=== PATIENT | male | born 1965 | race Caucasian/White ===

== ENCOUNTER 2018-05-15 11:05 | Inpatient (IN) | payer OTHER ==
[2018-05-15 11:12] VITALS: BMI 29.7
--- NOTE | 2018-05-15 11:26 | HP ---
CIWA Score - CIWA Score Nausea/Vomitin Muscle Tremors: 3 Anxiety: 3 Agitation: 2 Paroxysmal Sweats: 1-Minimal Palms Moist Orientation: 0-Oriented Tacttile Disturbances: 1-Very Mild Itch/Numbness Auditory Disturbances: 1-Very Mild Visual Disturbances: 0-None Headache: 2-Mild CIWA-Ar Total Score: 16 Admission ROS [facility] - HPI Chief Complaint: i need help to stop drinking alcohol Allergies/Adverse Reactions: Allergies Allergy/AdvReac Type Severity Reaction Status Date / Time No Known Allergies Allergy Verified 06/02/14 19:48 History of Present Illness: this 52 years old male with alcohol dependence,seeking detox,withdrawal symptom, last detox 04/11 unknowm facility htn,type 2 dm,non compliance anxiety,depression,insomnia no significant period of sobriety seen in olds last night Exam Limitations: No Limitations - Ebola screening Have you been sick,other than usual withdrawal symptoms: No - Review of Systems Constitutional: Loss of Appetite, Malaise, Night Sweats, Changes in sleep, Weakness EENT: reports: Tearing, Nose Congestion Cardiac: reports: No Symptoms Reported GI: reports: Diarrhea, Nausea, Vomiting, Abdominal cramping : reports: No Symptoms Reported Musculoskeletal: reports: Back Pain, Muscle Pain Integumentary: reports: Dryness Neuro: reports: Headache, Tremors Endocrine: reports: No Symptoms Reported Hematology: reports: No Symptoms Reported Psychiatric: reports: No Sypmtoms Reported, Judgement Intact, Mood/Affect Appropiate, Anxious, Depressed (insomnia) Patient History - Patient Medical History Hx Anemia: No Hx Asthma: No Hx Chronic Obstructive Pulmonary Disease (COPD): No Hx Cancer: No Hx Cardiac Disorders: No Hx Hypertension: Yes (non compliance no medcation for 2 weeks) Hx Hypercholesterolemia: No Hx Pacemaker: No HX Cerebrovascular Accident: No Hx Seizures: No Hx Diabetes: No Hx Gastrointestinal Disorders: No Hx Liver Disease: No Hx Genitourinary Disorders: Yes (SYPHILIS WITH TREATMENT ) Hx Sexually Transmitted Disorders: Yes Hx Renal Disease (ESRD): No Hx Thyroid Disease: No Hx Human Immunodeficiency Virus (HIV): No ( last 05/11 negative) Hx Hepatitis C: No Hx Depression: Yes (WANTS PSYCH EVAL) Hx Suicide Attempt: No (DENIES) Hx Bipolar Disorder: No Hx Schizophrenia: No Other Medical History: no suicidal,no homicidal - Patient Surgical History Past Surgical History: No Hx Neurologic Surgery: No Hx Cataract Extraction: No Hx Cardiac Surgery: No Hx Lung Surgery: No Hx Breast Surgery: No Hx Breast Biopsy: No Hx Abdominal Surgery: No Hx Appendectomy: No Hx Cholecystectomy: No Hx Genitourinary Surgery: No Hx Section: No Hx Orthopedic Surgery: No Anesthesia Reaction: No - PPD History Previous Implant?: Yes Documented Results: Positive w/o proof PPD to be Administered?: No - Smoking Cessation Smoking history: Never smoked Have you smoked in the past 12 months: No Hx Chewing Tobacco Use: No - Substance & Tx. History Hx Alcohol Use: Yes Hx Substance Use: No Substance Use Type: Alcohol Hx Substance Use Treatment: Yes (04/11 unknown facility) - Substances Abused Alcohol Route: Oral Frequency: Daily Amount used: 2 pints of vodka Age of first use: 15 Date of Last Use: 05/14/18 Family Disease History - Family Disease History Family Disease History: Other: Father (HTN,) Admission Physical Exam [facility] - Vital Signs Vital Signs: Vital Signs - 24 hr 05/15/18 11:10 Temperature 97.5 F L Pulse Rate 105 H Respiratory 20 Rate Blood Pressure 128/92 - Physical General Appearance: Yes: Moderate Distress, Tremorous, Irritable, Sweating, Anxious HEENTM: Yes: Normal ENT Inspection, PRECIOUS, Pharynx Normal Respiratory: Yes: Lungs Clear, Normal Breath Sounds, No Respiratory Distress Neck: Yes: Within Normal Limits, Supple, Trachea in good position Breast: Yes: Within Normal Limits Cardiology: Yes: Within Normal Limits, Regular Rhythm, Regular Rate, S1, S2 Abdominal: Yes: Within Normal Limits, Normal Bowel Sounds, Non Tender, Flat, Soft Genitourinary: Yes: Within Normal Limits Back: Yes: Muscle Spasm Musculoskeletal: Yes: Back pain, Muscle Pain Extremities: Yes: Tremors Neurological: Yes: pizza cook II-XII NML intact, Alert, Motor Strength 5/5, Normal Mood /Affect Integumentary: Yes: Dry Lymphatic: Yes: Within Normal Limits - Diagnostic (1) Alcohol dependence, uncomplicated Current Visit: Yes Status: Acute (2) Essential hypertension Current Visit: No Status: Acute (3) Syncope Current Visit: No Status: Acute (4) DM2 (diabetes mellitus, type 2) Current Visit: Yes Status: Acute Cleared for Admission [facility] - Detox or Rehab [facility] Level of Care: Medically Managed Detox Regimen/Protocol: [facility] Breath Alcohol Content Breath Alcohol Content: 0.129 Urine Drug Screen - Results Drug Screen Negative: No Urine Drug Screen Results: BZO-Benzodiazepines
[2018-05-15] MEDS ORDERED: MAGNESIUM HYDROX 2400MG/30ML ORAL SUSPENSION 30 ML CUP PO PRN (11:35)
[2018-05-15] MEDS ORDERED: MAGNESIUM CITRATE 300 ML BOTTLE PO PRN (11:35)
[2018-05-15] MEDS ORDERED: MENTHOL/PHENOL 1 EACH UD MM PRN (11:35)
[2018-05-15] MEDS ORDERED: IBUPROFEN 400 MG TABLET (FP) PO PRN (11:35)
[2018-05-15] MEDS ORDERED: MAG HYDROX/AL HYDROX/SIMETH 30 ML UNIT-DOSE CUP PO PRN (11:35)
[2018-05-15] MEDS ORDERED: guaiFENesin/D-METHORPHAN HB 10 ML UNIT-DOSE CUPS PO PRN (11:35)
[2018-05-15] MEDS ORDERED: P-EPHED 60MG/TRIPROLIDI 2.5MG TABLET PO PRN (11:35)
[2018-05-15] MEDS ORDERED: LOPERAMIDE HCL 2 MG CAPSULE PO PRN (11:35)
[2018-05-15] MEDS ORDERED: ACETAMINOPHEN 325 MG TABLET (FP) PO PRN (11:35)
[2018-05-15] MEDS: chlordiazePOXIDE HCL 25 MG CAPSULE PO PRN (13:23)
[2018-05-15] MEDS: chlordiazePOXIDE HCL 25 MG CAPSULE PO SCH ×2 (17:50→22:49)
[2018-05-15 20:23] LABS: URINE APPEARANCE CLOUDY; URINE BILIRUBIN NEGATIVE (<2.0 mg/dL); URINE COLOR LTYELLOW; URINE GLUCOSE (UA) 3+ (NEGATIVE); URINE KETONE NEGATIVE (NEGATIVE); URINE LEUK ESTERASE NEGATIVE (NEGATIVE); URINE NITRITE NEGATIVE (NEGATIVE); URINE UROBILINOGEN NEGATIVE mg/dL (0.2-1.0)
[2018-05-15 20:29] LABS: URINE PROTEIN 1+ (NEGATIVE)
[2018-05-15 20:31] LABS: URINE MUCUS RARE
--- NOTE | 2018-05-15 21:26 | EKG ---
Test Reason : Blood Pressure : / mmHG Vent. Rate : 105 BPM Atrial Rate : 105 BPM P-R Int : 160 ms QRS Dur : 078 ms QT Int : 374 ms P-R-T Axes : 061 -48 044 degrees QTc Int : 494 ms SINUS TACHYCARDIA WITH OCCASIONAL PREMATURE VENTRICULAR COMPLEXES POSSIBLE LEFT ATRIAL ENLARGEMENT LEFT AXIS DEVIATION ABNORMAL ECG NO PREVIOUS ECGS AVAILABLE Confirmed by YVETTE GAYTAN MD ([id number]) on 05/15/2018 9:26:25 PM Referred By: Confirmed By:YVETTE GAYTAN MD
[2018-05-15] MEDS: THIAMINE HCL 100 MG TABLET (FP) PO SCH (22:49)
[2018-05-15] MEDS: MELATONIN 5 MG TABLETS PO PRN (22:50)
[2018-05-16] MEDS: chlordiazePOXIDE HCL 25 MG CAPSULE PO SCH ×4 (06:00→22:07)
[2018-05-16 09:43] LABS: HEMATOCRIT 40.2 % (35.4-49); HEMOGLOBIN 13.7 GM/dL (11.7-16.9); MCHC 33.9 g/dl (32.0-35.9); MEAN CELL VOLUME 94.4 fl (80-96); MEAN PLT VOLUME 11.1 fl (7.5-11.1); PLATELET COUNT 177 K/MM3 (134-434); RBC 4.26 M/mm3 (4.00-5.60); RDW 13.9 % (11.9-15.9); WHITE BLOOD COUNT 4.8 K/mm3 (4.0-10.0)
[2018-05-16 09:58] LABS: ALBUMIN 3.3 g/dl (3.4-5.0); ANION GAP 10 (8-16); BLOOD UREA NITROGEN 9 mg/dL (7-18); CALCIUM 8.7 mg/dL (8.5-10.1); CHLORIDE 101 mmol/L (98-107); CO2 28 mmol/L (21-32); GLUCOSE,RANDOM 274 mg/dL (74-106); POTASSIUM 3.8 mmol/L (3.5-5.1); SGPT/ALT 40 U/L (12-78); SODIUM 139 mmol/L (136-145)
[2018-05-16 10:01] LABS: ALK PHOS 73 U/L (45-117); BILIRUBIN,TOTAL 0.3 mg/dL (0.2-1.0); CREATININE 0.9 mg/dL (0.7-1.3); SGOT/AST 23 U/L (15-37); TOT PROT 6.3 g/dl (6.4-8.2)
[2018-05-16] MEDS: HYDROCHLOROTHIAZIDE 25 MG TABLET (FP) PO SCH (10:25)
[2018-05-16] MEDS: PRENATAL VITAMINS W/ FOLIC ACID TABLET (FP) PO SCH (10:25)
--- NOTE | 2018-05-16 13:13 | CONSULT ---
[facility] Psychiatric Consult - Data Date of interview: 05/16/18 Admission source: [facility] Identifying data: Readmission to [facility] for this 52 y/o male seeking detox treatment on for alcohol dependence.Patient is ,a father of four,homeless,unemployed and supported on unemployment benefits. Substance Abuse History: Confirmed by the patient in this interview.Smoking history: Never smoked. Have you smoked in the past 12 months: No. Hx Chewing Tobacco Use: No. - Substance & Tx. History. Hx Alcohol Use: Yes. Hx Substance Use: No. Substance Use Type: Alcohol. Hx Substance Use Treatment: Yes (04/11 unknown facility). - Substances Abused. Alcohol. Route: Oral. Frequency: Daily. Amount used: 2 pints of vodka. Age of first use: 15. Date of Last Use: 05/14/18 Medical History: Diabetes mellitus,hypertension,GERD and a history of treatment for syphilis. Psychiatric History: Patient denies. Physical/Sexual Abuse/Trauma History: No history. Additional Comment: Urine Drug Screen Results: BZO-Benzodiazepines.Noted. Mental Status Exam - Mental Status Exam Alert and Oriented to: Time, Place, Person Cognitive Function: Good Patient Appearance: Disheveled Mood: Withdrawn, Irritable Affect: Mood Congruent Patient Behavior: Fatigued, Cooperative Speech Pattern: Clear, Appropriate Voice Loudness: Normal Thought Process: Intact, Goal Oriented Thought Disorder: Not Present Hallucinations: Denies Suicidal Ideation: Denies Homicidal Ideation: Denies Insight/Judgement: Poor Sleep: Well Appetite: Good Muscle strength/Tone: Normal Gait/Station: Normal Psychiatric Findings - Problem List ([place] 1, 2,3) (1) Alcohol dependence, uncomplicated Current Visit: Yes Status: Acute (2) Substance induced mood disorder Current Visit: Yes Status: Suspected - Initial Treatment Plan Initial Treatment Plan: Psychoeducation.Sleep hygiene.Detoxification.Observation.
--- NOTE | 2018-05-16 15:55 | PN ---
[facility] CIWA - CIWA Score Nausea/Vomitin Muscle Tremors: 3 Anxiety: 3 Agitation: 3 Paroxysmal Sweats: 3 Orientation: 0-Oriented Tacttile Disturbances: 0-None Auditory Disturbances: 0-None Visual Disturbances: 0-None Headache: 0-None Present CIWA-Ar Total Score: 14 S Progress Note (SOAP) Subjective: shakes sweats sleep disturbance Objective: 05/16/18 15:51 A & O x 3 Gait steady No acute distress Vital Signs Temperature 97.4 F L 05/16/18 14:03 Pulse Rate 104 H 05/16/18 15:00 Respiratory Rate 20 05/16/18 15:00 Blood Pressure 148/86 05/16/18 14:03 O2 Sat by Pulse Oximetry (%) Laboratory Last Values WBC 4.8 K/mm3 (4.0-10.0) 05/16/18 07:00 RBC 4.26 M/mm3 (4.00-5.60) 05/16/18 07:00 Hgb 13.7 GM/dL (11.7-16.9) 05/16/18 07:00 Hct 40.2 % (35.4-49) 05/16/18 07:00 MCV 94.4 fl (80-96) 05/16/18 07:00 MCH 32.0 pg (25.7-33.7) 05/16/18 07:00 MCHC 33.9 g/dl (32.0-35.9) 05/16/18 07:00 RDW 13.9 % (11.9-15.9) 05/16/18 07:00 Plt Count 177 K/MM3 (134-434) 05/16/18 07:00 MPV 11.1 fl (7.5-11.1) 05/16/18 07:00 Sodium 139 mmol/L (136-145) 05/16/18 07:00 Potassium 3.8 mmol/L (3.5-5.1) 05/16/18 07:00 Chloride 101 mmol/L (98-107) 05/16/18 07:00 Carbon Dioxide 28 mmol/L (21-32) 05/16/18 07:00 Anion Gap 10 (8-16) 05/16/18 07:00 BUN 9 mg/dL (7-18) 05/16/18 07:00 Creatinine 0.9 mg/dL (0.7-1.3) 05/16/18 07:00 Creat Clearance w eGFR > 60 (>60) 05/16/18 07:00 POC Glucometer 210 UNITS (80-120) 05/16/18 06:00 Random Glucose 274 mg/dL (74-106) H D 05/16/18 07:00 Calcium 8.7 mg/dL (8.5-10.1) 05/16/18 07:00 Total Bilirubin 0.3 mg/dL (0.2-1.0) 05/16/18 07:00 AST 23 U/L (15-37) 05/16/18 07:00 ALT 40 U/L (12-78) D 05/16/18 07:00 Alkaline Phosphatase 73 U/L (45-117) 05/16/18 07:00 Total Protein 6.3 g/dl (6.4-8.2) L 05/16/18 07:00 Albumin 3.3 g/dl (3.4-5.0) L 05/16/18 07:00 Urine Color Ltyellow 05/15/18 16:30 Urine Appearance Cloudy 05/15/18 16:30 Urine pH 5.0 (5.0-8.0) 05/15/18 16:30 Ur Specific [place] 1.020 (1.001-1.035) 05/15/18 16:30 Urine Protein 1+ (NEGATIVE) H 05/15/18 16:30 Urine Glucose (UA) 3+ (NEGATIVE) H 05/15/18 16:30 Urine Ketones Negative (NEGATIVE) 05/15/18 16:30 Urine Blood Negative (NEGATIVE) 05/15/18 16:30 Urine Nitrite Negative (NEGATIVE) 05/15/18 16:30 Urine Bilirubin Negative (<2.0 mg/dL) 05/15/18 16:30 Urine Urobilinogen Negative mg/dL (0.2-1.0) 05/15/18 16:30 Ur Leukocyte Esterase Negative (NEGATIVE) 05/15/18 16:30 Urine WBC (Auto) 2 /hpf (3-5) 05/15/18 16:30 Urine RBC (Auto) <1 /hpf (0-3) 05/15/18 16:30 Urine Mucus Rare 05/15/18 16:30 RPR Titer Nonreactive (NONREACTIVE) 05/16/18 07:00 labs noted elevated blood glucose abnormal urianalysis Assessment: 05/16/18 15:53 withdrawal sx hyperglycemia Plan: continue detox take anti diabetics increase hydration
[2018-05-16] MEDS: metFORMIN HCL 500 MG TABLET (FP) PO SCH (17:06)
[2018-05-16] MEDS: chlordiazePOXIDE HCL 25 MG CAPSULE PO PRN (20:50)
[2018-05-16] MEDS: THIAMINE HCL 100 MG TABLET (FP) PO SCH (22:07)
[2018-05-16] MEDS: MELATONIN 5 MG TABLETS PO PRN (22:08)
[2018-05-17] MEDS: chlordiazePOXIDE HCL 25 MG CAPSULE PO SCH ×2 (05:43→10:27)
[2018-05-17] MEDS: metFORMIN HCL 500 MG TABLET (FP) PO SCH ×2 (07:38→17:19)
[2018-05-17] MEDS: PRENATAL VITAMINS W/ FOLIC ACID TABLET (FP) PO SCH (10:27)
[2018-05-17] MEDS: HYDROCHLOROTHIAZIDE 25 MG TABLET (FP) PO SCH (10:28)
--- NOTE | 2018-05-17 14:38 | PN ---
S CIWA - CIWA Score Nausea/Vomitin-No Nausea/No Vomiting Muscle Tremors: None Anxiety: 4-Mod. Anxious/Guarded Agitation: 3 Paroxysmal Sweats: 3 Orientation: 0-Oriented Tacttile Disturbances: 2-Mild Itch/Numbness/Burn Auditory Disturbances: 0-None Visual Disturbances: 0-None Headache: 2-Mild CIWA-Ar Total Score: 14 S Progress Note (SOAP) Subjective: Sweating, H/A, Anxious. Objective: PATIENT A & O X 3, OBSERVED AMBULATING ON UNIT. NO ACUTE DISTRESS. PATIENT DENIES CHEST PAIN. 05/17/18 14:35 Vital Signs Temperature 96.7 F L 05/17/18 13:10 Pulse Rate 120 H 05/17/18 13:10 Respiratory Rate 18 05/17/18 13:10 Blood Pressure 128/90 05/17/18 13:10 O2 Sat by Pulse Oximetry (%) Laboratory Tests 05/15/18 05/15/18 05/15/18 12:24 16:21 16:30 WBC RBC Hgb Hct MCV MCH MCHC RDW Plt Count MPV Sodium Potassium Chloride Carbon Dioxide Anion Gap BUN Creatinine Creat Clearance w eGFR POC Glucometer 293 262 Random Glucose Calcium Total Bilirubin AST ALT Alkaline Phosphatase Total Protein Albumin Urine Color Ltyellow Urine Appearance Cloudy Urine pH 5.0 Ur Specific [place] 1.020 Urine Protein 1+ H Urine Glucose (UA) 3+ H Urine Ketones Negative Urine Blood Negative Urine Nitrite Negative Urine Bilirubin Negative Urine Urobilinogen Negative Ur Leukocyte Esterase Negative Urine WBC (Auto) 2 Urine RBC (Auto) <1 Urine Mucus Rare RPR Titer 05/16/18 05/16/18 05/16/18 06:00 07:00 07:00 WBC 4.8 RBC 4.26 Hgb 13.7 Hct 40.2 MCV 94.4 MCH 32.0 MCHC 33.9 RDW 13.9 Plt Count 177 MPV 11.1 Sodium 139 Potassium 3.8 Chloride 101 Carbon Dioxide 28 Anion Gap 10 BUN 9 Creatinine 0.9 Creat Clearance w eGFR > 60 POC Glucometer 210 Random Glucose 274 H D Calcium 8.7 Total Bilirubin 0.3 AST 23 ALT 40 D Alkaline Phosphatase 73 Total Protein 6.3 L Albumin 3.3 L Urine Color Urine Appearance Urine pH Ur Specific [place] Urine Protein Urine Glucose (UA) Urine Ketones Urine Blood Urine Nitrite Urine Bilirubin Urine Urobilinogen Ur Leukocyte Esterase Urine WBC (Auto) Urine RBC (Auto) Urine Mucus RPR Titer 05/16/18 05/16/18 05/17/18 07:00 16:15 05:42 WBC RBC Hgb Hct MCV MCH MCHC RDW Plt Count MPV Sodium Potassium Chloride Carbon Dioxide Anion Gap BUN Creatinine Creat Clearance w eGFR POC Glucometer 317 223 Random Glucose Calcium Total Bilirubin AST ALT Alkaline Phosphatase Total Protein Albumin Urine Color Urine Appearance Urine pH Ur Specific [place] Urine Protein Urine Glucose (UA) Urine Ketones Urine Blood Urine Nitrite Urine Bilirubin Urine Urobilinogen Ur Leukocyte Esterase Urine WBC (Auto) Urine RBC (Auto) Urine Mucus RPR Titer Nonreactive LABS NOTED. 05/17/18 14:37 Assessment: 05/17/18 14:36 WITHDRAWAL SYMPTOMS. HYPERTENSION. 05/17/18 14:37 Plan: CONTINUE DETOX. INCREASE DAILY PO FLUID INTAKE.
[2018-05-17] MEDS: chlordiazePOXIDE 5 MG CAPSULE PO SCH ×2 (17:19→22:04)
[2018-05-17] MEDS: THIAMINE HCL 100 MG TABLET (FP) PO SCH (22:04)
[2018-05-17] MEDS: MELATONIN 5 MG TABLETS PO PRN (22:04)
[2018-05-18] MEDS: chlordiazePOXIDE 5 MG CAPSULE PO SCH ×2 (05:37→10:20)
[2018-05-18] MEDS: metFORMIN HCL 500 MG TABLET (FP) PO SCH ×2 (06:51→16:19)
[2018-05-18] MEDS: PRENATAL VITAMINS W/ FOLIC ACID TABLET (FP) PO SCH (10:20)
[2018-05-18] MEDS: HYDROCHLOROTHIAZIDE 25 MG TABLET (FP) PO SCH (10:20)
--- NOTE | 2018-05-18 12:43 | PN ---
[facility] Progress Note (SOAP) Subjective: Diarrhea, Anxious. Objective: PATIENT A & O X 3. NO ACUTE DISTRESS. 05/18/18 12:42 Vital Signs Temperature 96.9 F L 05/18/18 09:06 Pulse Rate 87 05/18/18 09:06 Respiratory Rate 18 05/18/18 09:06 Blood Pressure 137/99 05/18/18 09:06 O2 Sat by Pulse Oximetry (%) Laboratory Tests 05/15/18 05/15/18 05/15/18 12:24 16:21 16:30 WBC RBC Hgb Hct MCV MCH MCHC RDW Plt Count MPV Sodium Potassium Chloride Carbon Dioxide Anion Gap BUN Creatinine Creat Clearance w eGFR POC Glucometer 293 262 Random Glucose Calcium Total Bilirubin AST ALT Alkaline Phosphatase Total Protein Albumin Urine Color Ltyellow Urine Appearance Cloudy Urine pH 5.0 Ur Specific [place] 1.020 Urine Protein 1+ H Urine Glucose (UA) 3+ H Urine Ketones Negative Urine Blood Negative Urine Nitrite Negative Urine Bilirubin Negative Urine Urobilinogen Negative Ur Leukocyte Esterase Negative Urine WBC (Auto) 2 Urine RBC (Auto) <1 Urine Mucus Rare RPR Titer 05/16/18 05/16/18 05/16/18 06:00 07:00 07:00 WBC 4.8 RBC 4.26 Hgb 13.7 Hct 40.2 MCV 94.4 MCH 32.0 MCHC 33.9 RDW 13.9 Plt Count 177 MPV 11.1 Sodium 139 Potassium 3.8 Chloride 101 Carbon Dioxide 28 Anion Gap 10 BUN 9 Creatinine 0.9 Creat Clearance w eGFR > 60 POC Glucometer 210 Random Glucose 274 H D Calcium 8.7 Total Bilirubin 0.3 AST 23 ALT 40 D Alkaline Phosphatase 73 Total Protein 6.3 L Albumin 3.3 L Urine Color Urine Appearance Urine pH Ur Specific [place] Urine Protein Urine Glucose (UA) Urine Ketones Urine Blood Urine Nitrite Urine Bilirubin Urine Urobilinogen Ur Leukocyte Esterase Urine WBC (Auto) Urine RBC (Auto) Urine Mucus RPR Titer 05/16/18 05/16/18 05/17/18 07:00 16:15 05:42 WBC RBC Hgb Hct MCV MCH MCHC RDW Plt Count MPV Sodium Potassium Chloride Carbon Dioxide Anion Gap BUN Creatinine Creat Clearance w eGFR POC Glucometer 317 223 Random Glucose Calcium Total Bilirubin AST ALT Alkaline Phosphatase Total Protein Albumin Urine Color Urine Appearance Urine pH Ur Specific [place] Urine Protein Urine Glucose (UA) Urine Ketones Urine Blood Urine Nitrite Urine Bilirubin Urine Urobilinogen Ur Leukocyte Esterase Urine WBC (Auto) Urine RBC (Auto) Urine Mucus RPR Titer Nonreactive 05/17/18 05/18/18 16:21 05:37 WBC RBC Hgb Hct MCV MCH MCHC RDW Plt Count MPV Sodium Potassium Chloride Carbon Dioxide Anion Gap BUN Creatinine Creat Clearance w eGFR POC Glucometer 347 243 Random Glucose Calcium Total Bilirubin AST ALT Alkaline Phosphatase Total Protein Albumin Urine Color Urine Appearance Urine pH Ur Specific [place] Urine Protein Urine Glucose (UA) Urine Ketones Urine Blood Urine Nitrite Urine Bilirubin Urine Urobilinogen Ur Leukocyte Esterase Urine WBC (Auto) Urine RBC (Auto) Urine Mucus RPR Titer LABS NOTED. Assessment: 05/18/18 12:42 WITHDRAWAL SYMPTOMS. Plan: CONTINUE DETOX. INCREASE DAILY PO FLUID INTAKE. PRN IMMODIUM FOR DIARRHEA. PATIENT SCHEDULED FOR D/C TOMORROW.
[2018-05-18] MEDS: chlordiazePOXIDE HCL 10 MG CAPSULE PO SCH ×2 (17:37→22:50)
[2018-05-18] MEDS: THIAMINE HCL 100 MG TABLET (FP) PO SCH (22:50)
[2018-05-19] MEDS: chlordiazePOXIDE HCL 10 MG CAPSULE PO SCH (05:34)
[2018-05-19 05:58] VITALS: BP 121/73; PULSE 93; TEMP 97.2
[2018-05-19] MEDS: metFORMIN HCL 500 MG TABLET (FP) PO SCH (07:45)
--- NOTE | 2018-05-19 20:23 | PN ---
[facility] Progress Note (SOAP) Subjective: Patient left Detox unit prior to time in which BILLING CLERK was available to conduct Discharge Assessment. Objective: 05/19/18 20:21 Vital Signs Temperature 97.2 F L 05/19/18 05:58 Pulse Rate 93 H 05/19/18 05:58 Respiratory Rate 18 05/19/18 06:30 Blood Pressure 121/73 05/19/18 05:58 O2 Sat by Pulse Oximetry (%) Laboratory Tests 05/15/18 05/15/18 05/15/18 12:24 16:21 16:30 WBC RBC Hgb Hct MCV MCH MCHC RDW Plt Count MPV Sodium Potassium Chloride Carbon Dioxide Anion Gap BUN Creatinine Creat Clearance w eGFR POC Glucometer 293 262 Random Glucose Calcium Total Bilirubin AST ALT Alkaline Phosphatase Total Protein Albumin Urine Color Ltyellow Urine Appearance Cloudy Urine pH 5.0 Ur Specific [place] 1.020 Urine Protein 1+ H Urine Glucose (UA) 3+ H Urine Ketones Negative Urine Blood Negative Urine Nitrite Negative Urine Bilirubin Negative Urine Urobilinogen Negative Ur Leukocyte Esterase Negative Urine WBC (Auto) 2 Urine RBC (Auto) <1 Urine Mucus Rare RPR Titer 05/16/18 05/16/18 05/16/18 06:00 07:00 07:00 WBC 4.8 RBC 4.26 Hgb 13.7 Hct 40.2 MCV 94.4 MCH 32.0 MCHC 33.9 RDW 13.9 Plt Count 177 MPV 11.1 Sodium 139 Potassium 3.8 Chloride 101 Carbon Dioxide 28 Anion Gap 10 BUN 9 Creatinine 0.9 Creat Clearance w eGFR > 60 POC Glucometer 210 Random Glucose 274 H D Calcium 8.7 Total Bilirubin 0.3 AST 23 ALT 40 D Alkaline Phosphatase 73 Total Protein 6.3 L Albumin 3.3 L Urine Color Urine Appearance Urine pH Ur Specific [place] Urine Protein Urine Glucose (UA) Urine Ketones Urine Blood Urine Nitrite Urine Bilirubin Urine Urobilinogen Ur Leukocyte Esterase Urine WBC (Auto) Urine RBC (Auto) Urine Mucus RPR Titer 05/16/18 05/16/18 05/17/18 07:00 16:15 05:42 WBC RBC Hgb Hct MCV MCH MCHC RDW Plt Count MPV Sodium Potassium Chloride Carbon Dioxide Anion Gap BUN Creatinine Creat Clearance w eGFR POC Glucometer 317 223 Random Glucose Calcium Total Bilirubin AST ALT Alkaline Phosphatase Total Protein Albumin Urine Color Urine Appearance Urine pH Ur Specific [place] Urine Protein Urine Glucose (UA) Urine Ketones Urine Blood Urine Nitrite Urine Bilirubin Urine Urobilinogen Ur Leukocyte Esterase Urine WBC (Auto) Urine RBC (Auto) Urine Mucus RPR Titer Nonreactive 05/17/18 05/18/18 05/18/18 16:21 05:37 16:17 WBC RBC Hgb Hct MCV MCH MCHC RDW Plt Count MPV Sodium Potassium Chloride Carbon Dioxide Anion Gap BUN Creatinine Creat Clearance w eGFR POC Glucometer 347 243 281 Random Glucose Calcium Total Bilirubin AST ALT Alkaline Phosphatase Total Protein Albumin Urine Color Urine Appearance Urine pH Ur Specific [place] Urine Protein Urine Glucose (UA) Urine Ketones Urine Blood Urine Nitrite Urine Bilirubin Urine Urobilinogen Ur Leukocyte Esterase Urine WBC (Auto) Urine RBC (Auto) Urine Mucus RPR Titer 05/19/18 05:33 WBC RBC Hgb Hct MCV MCH MCHC RDW Plt Count MPV Sodium Potassium Chloride Carbon Dioxide Anion Gap BUN Creatinine Creat Clearance w eGFR POC Glucometer 289 Random Glucose Calcium Total Bilirubin AST ALT Alkaline Phosphatase Total Protein Albumin Urine Color Urine Appearance Urine pH Ur Specific [place] Urine Protein Urine Glucose (UA) Urine Ketones Urine Blood Urine Nitrite Urine Bilirubin Urine Urobilinogen Ur Leukocyte Esterase Urine WBC (Auto) Urine RBC (Auto) Urine Mucus RPR Titer LABS NOTED. Assessment: 05/19/18 20:22 COMPLETION OF DETOX REGIMEN. Plan: PATIENT SCHEDULED FOR DISCHARGE FROM DETOX UNIT TODAY.
--- NOTE | 2018-05-19 20:29 | DS ---
[facility] Detox Discharge Summary Admission Date: 05/15/18 Discharge Date: 05/19/18 - History Present History: Alcohol Dependence Additional Comments: PATIENT LEFT DETOX UNIT BEFORE POWER GENERATION TECHNICIAN WAS AVAILABLE TO SPEAK WITH HIM TO CONDUCT DISCHARGE ASSESSMENT. PATIENT PREVIOUSLY ADVISED TO CONSIDER LOCAL 12-STEP / AA OUTPATIENT SUPPORT GROUP FOR AFTERCARE. Pertinent Past History: HTN, Type II DM, Depression, History of Syphilis (Treated), Insomnia, Anxiety. - Physical Exam Results Vital Signs: Vital Signs Temperature 97.2 F L 05/19/18 05:58 Pulse Rate 93 H 05/19/18 05:58 Respiratory Rate 18 05/19/18 06:30 Blood Pressure 121/73 05/19/18 05:58 O2 Sat by Pulse Oximetry (%) Pertinent Admission Physical Exam Findings: WITHDRAWAL SYMPTOMS. Laboratory Tests 05/15/18 05/15/18 05/15/18 12:24 16:21 16:30 WBC RBC Hgb Hct MCV MCH MCHC RDW Plt Count MPV Sodium Potassium Chloride Carbon Dioxide Anion Gap BUN Creatinine Creat Clearance w eGFR POC Glucometer 293 262 Random Glucose Calcium Total Bilirubin AST ALT Alkaline Phosphatase Total Protein Albumin Urine Color Ltyellow Urine Appearance Cloudy Urine pH 5.0 Ur Specific [place] 1.020 Urine Protein 1+ H Urine Glucose (UA) 3+ H Urine Ketones Negative Urine Blood Negative Urine Nitrite Negative Urine Bilirubin Negative Urine Urobilinogen Negative Ur Leukocyte Esterase Negative Urine WBC (Auto) 2 Urine RBC (Auto) <1 Urine Mucus Rare RPR Titer 05/16/18 05/16/18 05/16/18 06:00 07:00 07:00 WBC 4.8 RBC 4.26 Hgb 13.7 Hct 40.2 MCV 94.4 MCH 32.0 MCHC 33.9 RDW 13.9 Plt Count 177 MPV 11.1 Sodium 139 Potassium 3.8 Chloride 101 Carbon Dioxide 28 Anion Gap 10 BUN 9 Creatinine 0.9 Creat Clearance w eGFR > 60 POC Glucometer 210 Random Glucose 274 H D Calcium 8.7 Total Bilirubin 0.3 AST 23 ALT 40 D Alkaline Phosphatase 73 Total Protein 6.3 L Albumin 3.3 L Urine Color Urine Appearance Urine pH Ur Specific [place] Urine Protein Urine Glucose (UA) Urine Ketones Urine Blood Urine Nitrite Urine Bilirubin Urine Urobilinogen Ur Leukocyte Esterase Urine WBC (Auto) Urine RBC (Auto) Urine Mucus RPR Titer 05/16/18 05/16/18 05/17/18 07:00 16:15 05:42 WBC RBC Hgb Hct MCV MCH MCHC RDW Plt Count MPV Sodium Potassium Chloride Carbon Dioxide Anion Gap BUN Creatinine Creat Clearance w eGFR POC Glucometer 317 223 Random Glucose Calcium Total Bilirubin AST ALT Alkaline Phosphatase Total Protein Albumin Urine Color Urine Appearance Urine pH Ur Specific [place] Urine Protein Urine Glucose (UA) Urine Ketones Urine Blood Urine Nitrite Urine Bilirubin Urine Urobilinogen Ur Leukocyte Esterase Urine WBC (Auto) Urine RBC (Auto) Urine Mucus RPR Titer Nonreactive 05/17/18 05/18/18 05/18/18 16:21 05:37 16:17 WBC RBC Hgb Hct MCV MCH MCHC RDW Plt Count MPV Sodium Potassium Chloride Carbon Dioxide Anion Gap BUN Creatinine Creat Clearance w eGFR POC Glucometer 347 243 281 Random Glucose Calcium Total Bilirubin AST ALT Alkaline Phosphatase Total Protein Albumin Urine Color Urine Appearance Urine pH Ur Specific [place] Urine Protein Urine Glucose (UA) Urine Ketones Urine Blood Urine Nitrite Urine Bilirubin Urine Urobilinogen Ur Leukocyte Esterase Urine WBC (Auto) Urine RBC (Auto) Urine Mucus RPR Titer 05/19/18 05:33 WBC RBC Hgb Hct MCV MCH MCHC RDW Plt Count MPV Sodium Potassium Chloride Carbon Dioxide Anion Gap BUN Creatinine Creat Clearance w eGFR POC Glucometer 289 Random Glucose Calcium Total Bilirubin AST ALT Alkaline Phosphatase Total Protein Albumin Urine Color Urine Appearance Urine pH Ur Specific [place] Urine Protein Urine Glucose (UA) Urine Ketones Urine Blood Urine Nitrite Urine Bilirubin Urine Urobilinogen Ur Leukocyte Esterase Urine WBC (Auto) Urine RBC (Auto) Urine Mucus RPR Titer LABS NOTED. - Treatment Hospital Course: Detox Protocol Followed, Detoxed Safely, Responded well, Discharged Condition Good Patient has Accepted a Rehab Referral to: PATIENT ADVISED TO CONSIDER LOCAL 12- STEP/AA OUTPATIENT SUPPORT GROUPS. - Medication Discharge Medications: Ambulatory Orders NK [No Known Home Medication] 05/15/18 - Diagnosis (1) Alcohol dependence, uncomplicated Status: Acute (2) DM2 (diabetes mellitus, type 2) Status: Chronic Qualifiers: Diabetes mellitus watermelon inspector insulin use: without skilled nursing use Diabetes mellitus complication status: with unspecified complications Qualified Code(s) : E11.8 - Type 2 diabetes mellitus with unspecified complications (3) Essential hypertension Status: Chronic (4) Insomnia secondary to depression with anxiety Status: Acute (5) Syncope Status: Acute Qualifiers: Syncope type: unspecified Qualified Code(s): R55 - Syncope and collapse (6) Substance induced mood disorder Status: Suspected - AMA Did Patient Leave Against Medical Advice: No
== END 2018-05-19 09:00 | disposition home or self-care (01) | DRG 775 ==
LOC: YASAS 11:05 → Y3N 12:41
PROVIDERS: ADMIT Surgery; ATTEND Surgery
PROC: HZ2ZZZZ Detoxification Services for Substance Abuse Treatment (ICD-10-PCS; principal; 2018-05-15)
DX: F10.20 Alcohol dependence, uncomplicated (principal); F51.05 Insomnia due to other mental disorder; F19.24 Other psychoactive substance dependence with psychoactive substance-induced mood disorder; I10 Essential (primary) hypertension; E11.9 Type 2 diabetes mellitus without complications; Z79.84 Long term (current) use of oral hypoglycemic drugs; R55 Syncope and collapse; Z86.19 Personal history of other infectious and parasitic diseases
CPT/HCPCS: 36415; 71046-TC-FY; 80053; 81003; 81015; 82962; 85027; 86593; 93005; 93010

== ENCOUNTER 2019-10-29 20:53 | Inpatient (IN) | payer OTHER ==
[2019-10-29 21:05] VITALS: BMI 28.9
--- NOTE | 2019-10-29 23:16 | HP ---
CIWA Score Nausea/Vomitin (vomiting x 3) Muscle Tremors: 4-Moderate,w/Arms Extend Anxiety: 3 Agitation: 3 Paroxysmal Sweats: 1-Minimal Palms Moist Orientation: 1-Uncertain about Date Tacttile Disturbances: 0-None Auditory Disturbances: 0-None Visual Disturbances: 0-None Headache: 2-Mild CIWA-Ar Total Score: 17 - Admission Criteria OASAS Guidelines: Admission for Medically Managed Detox: Requires at least one of the followin. CIWA greater than 12 2. Seizures within the past 24 hours 3. Delirium tremens within the past 24 hours 4. Hallucinations within the past 24 hours 5. Acute intervention needed for co occurring medical disorder 6. Acute intervention needed for co occurring psychiatric disorder 7. Severe withdrawal that cannot be handled at a lower level of care (continued vomiting, continued diarrhea, abnormal vital signs) requiring intravenous medication and/or fluids 8. Admitting History and Physical - Smoking History Smoking history: Never smoked Have you smoked in the past 12 months: No - Alcohol/Substance Use Hx Alcohol Use: Yes Admission ROS [facility] Chief Complaint: Alcohol withdrawal symptoms Allergies/Adverse Reactions: Allergies Allergy/AdvReac Type Severity Reaction Status Date / Time No Known Drug Allergies Allergy Verified 10/29/19 20:59 History of Present Illness: 54 years old male with a long history of alcohol dependence is seeking admission to detox. Patient has been in multiple detox and reports insignificant period of sobriety. He has medical history hypertension, alcohol related seizures, hyperlipidemia and diabetes type 2. He reports psych history of bipolar disorder and depression. 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 - Ebola screening Have you traveled outside of the country in the last 21 days: No (N) Have you had contact with anyone from an Ebola affected area: No Do you have a fever: No - Review of Systems Constitutional: Chills, Loss of Appetite, Malaise, Night Sweats EENT: reports: No Symptoms Reported Respiratory: reports: No Symptoms reported GI: reports: Poor Appetite, Poor Fluid Intake, Vomiting, Abdominal cramping : reports: No Symptoms Reported Musculoskeletal: reports: Back Pain Integumentary: reports: Dryness, Flushing Endocrine: reports: Flushing Hematology: reports: No Symptoms Reported Psychiatric: reports: Anxious Other Systems: Reviewed and Negative Patient History - Patient Medical History Hx Anemia: No Hx Asthma: No Hx Chronic Obstructive Pulmonary Disease (COPD): No Hx Cancer: No Hx Cardiac Disorders: No Hx Congestive Heart Failure: No Hx Hypertension: Yes (NON COMPLIANT) Hx Hypercholesterolemia: Yes (NON COMPLIANT) Hx Pacemaker: No HX Cerebrovascular Accident: No Hx Seizures: No Hx Dementia: No Hx Diabetes: Yes Hx Gastrointestinal Disorders: No Hx Liver Disease: No Hx Genitourinary Disorders: No Hx Sexually Transmitted Disorders: No Hx Renal Disease (ESRD): No Hx Thyroid Disease: No Hx Human Immunodeficiency Virus (HIV): No (Negative ) Hx Hepatitis C: No Hx Depression: Yes Hx Suicide Attempt: No Hx Bipolar Disorder: Yes Hx Schizophrenia: No - Patient Surgical History Past Surgical History: Yes Hx Neurologic Surgery: No Hx Cataract Extraction: No Hx Cardiac Surgery: No Hx Lung Surgery: No Hx Breast Surgery: No Hx Breast Biopsy: No Hx Abdominal Surgery: No Hx Appendectomy: No Hx Cholecystectomy: No Hx Genitourinary Surgery: No Hx Section: No Hx Orthopedic Surgery: No Other Surgical History: LACERATION OF THE SKULL REPAIR Anesthesia Reaction: No - PPD History Previous Implant?: No (PPD POSITIVE) Implanted On Prior [facility] Admission?: No Results: +TB PPD to be Administered?: No - Reproductive History Patient is a Female of Child Bearing Age (11 -55 yrs old): No (male) - Smoking Cessation Smoking history: Never smoked Have you smoked in the past 12 months: No Hx Chewing Tobacco Use: No Initiated information on smoking cessation: No - Substances abused Alcohol Substance route: Oral Frequency: Daily Amount used: liquor- 2 pints, beer- 1 six pack Age of first use: 15 Date of last use: 10/29/19 Admission Physical Exam BHS - Vital Signs Vital Signs: Vital Signs - 24 hr 10/29/19 10/29/19 20:55 22:12 Temperature 98.2 F 98.2 F Pulse Rate 95 H 95 H Respiratory 20 20 Rate Blood Pressure 132/84 132/84 - Physical General Appearance: Yes: Severe Distress, Irritable, Sweating, Anxious HEENTM: Yes: Within Normal Limits Respiratory: Yes: Lungs Clear, Normal Breath Sounds, No Respiratory Distress Neck: Yes: Within Normal Limits Breast: Yes: Breast Exam Deferred Cardiology: Yes: Tachycardia Abdominal: Yes: Normal Bowel Sounds Genitourinary: Yes: Within Normal Limits Back: Yes: Normal Inspection Neurological: Yes: Within Normal Limits Integumentary: Yes: Dry Lymphatic: Yes: Within Normal Limits - Diagnostic (1) Hyperlipidemia Current Visit: Yes Status: Chronic Qualifiers: Hyperlipidemia type: unspecified Qualified Code(s): E78.5 - Hyperlipidemia , unspecified (2) Alcohol dependence with uncomplicated withdrawal Current Visit: Yes Status: Acute Comment: NATE O.292 (3) DM2 (diabetes mellitus, type 2) Current Visit: Yes Status: Chronic Qualifiers: Diabetes mellitus terminal supervisor insulin use: without terminal supervisor use Diabetes mellitus complication status: with unspecified complications (4) HTN (hypertension) Current Visit: Yes Status: Chronic Qualifiers: Hypertension type: essential hypertension Qualified Code(s): I10 - Essential (primary) hypertension (5) Alcohol related seizure Current Visit: No Status: Chronic Cleared for Admission S - Detox or Rehab [facility] Level of Care: Medically Managed Detox Regimen/Protocol: Librium Breathalyzer - Breathalyzer Breathalyzer: 0 Urine Drug Screen - Test Device Lot number: [id number] Expiration date: 07/24/21 - Control Is test valid?: Yes - Results Drug screen NEGATIVE: Yes Inpatient Rehab Admission - Rehab Decision to Admit Inpatient rehab admission?: No
[2019-10-29] MEDS ORDERED: MAG HYDROX/AL HYDROX/SIMETH 30 ML UNIT-DOSE CUP PO PRN (23:32)
[2019-10-29] MEDS ORDERED: ACETAMINOPHEN 325 MG TABLET (FP) PO PRN ×2 (23:32)
[2019-10-29] MEDS ORDERED: BISMUTH SUBSALICYLATE 524 MG/30 ML UD PO PRN (23:32)
[2019-10-29] MEDS ORDERED: hydrOXYzine PAMOATE 25 MG CAPSULE (FP) PO PRN (23:32)
[2019-10-29] MEDS ORDERED: MAGNESIUM HYDROX 2400MG/30ML ORAL SUSPENSION 30 ML CUP PO PRN (23:32)
[2019-10-29] MEDS ORDERED: MENTHOL/PHENOL 1 EACH UD MM PRN (23:32)
[2019-10-29] MEDS ORDERED: IBUPROFEN 400 MG TABLET (FP) PO PRN (23:32)
[2019-10-29] MEDS ORDERED: METHOCARBAMOL 500 MG TABLET PO PRN (23:32)
[2019-10-29] MEDS ORDERED: MAGNESIUM CITRATE 300 ML BOTTLE PO PRN (23:32)
[2019-10-29] MEDS ORDERED: MELATONIN 5 MG TABLETS PO PRN (23:32)
[2019-10-30] MEDS: diazePAM 5 MG TABLET PO SCH ×4 (01:23→22:16)
[2019-10-30] MEDS ORDERED: GLIMEPIRIDE 2 MG TABLET PO SCH (07:00)
[2019-10-30 09:55] LABS: HEMATOCRIT 38.7 % (35.4-49); HEMOGLOBIN 12.8 GM/dL (11.7-16.9); MCH 31.9 pg (25.7-33.7); MEAN CELL VOLUME 96.8 fl (80-96); MEAN PLT VOLUME 10.2 fl (7.5-11.1); PLATELET COUNT 80 K/MM3 (134-434); RDW 13.6 % (11.9-15.9); WHITE BLOOD COUNT 2.7 K/mm3 (4.0-10.0)
[2019-10-30] MEDS: ASPIRIN COATED 81 MG TABLET.EC PO SCH (10:03)
[2019-10-30] MEDS: diazePAM 5 MG TABLET PO PRN (10:03)
[2019-10-30] MEDS: amLODIPine BESYLATE 5 MG TABLET (FP) PO SCH (10:04)
[2019-10-30] MEDS: PRENATAL VITAMINS W/ FOLIC ACID TABLET (FP) PO SCH (10:04)
--- NOTE | 2019-10-30 10:08 | EKG ---
Test Reason : Blood Pressure : / mmHG Vent. Rate : 098 BPM Atrial Rate : 098 BPM P-R Int : 196 ms QRS Dur : 082 ms QT Int : 368 ms P-R-T Axes : 064 -42 047 degrees QTc Int : 469 ms NORMAL SINUS RHYTHM LEFT AXIS DEVIATION NONSPECIFIC T WAVE ABNORMALITY PROLONGED QT ABNORMAL ECG WHEN COMPARED WITH ECG OF 15-MAY-2018 13:05, PREMATURE VENTRICULAR COMPLEXES ARE NO LONGER PRESENT Confirmed by EMANUEL VILLALPANDO, DENNYS ([id number]) on 10/30/2019 10:08:33 AM Referred By: Kali Winkler Confirmed By:DENNYS CASTELLANOS MD
[2019-10-30 10:13] LABS: ALBUMIN 3.3 g/dl (3.4-5.0); BILIRUBIN,TOTAL 0.3 mg/dL (0.2-1); BLOOD UREA NITROGEN 7.1 mg/dL (7-18); CALCIUM 8.1 mg/dL (8.5-10.1); CREATININE 0.7 mg/dL (0.55-1.3); POTASSIUM 3.3 mmol/L (3.5-5.1); TOT PROT 6.4 g/dl (6.4-8.2)
--- NOTE | 2019-10-30 11:50 | PN ---
S CIWA - CIWA Score Nausea/Vomitin-Mild Nausea/No Vomiting Muscle Tremors: 3 Anxiety: 3 Agitation: 2 Paroxysmal Sweats: 2 Orientation: 0-Oriented Tacttile Disturbances: 0-None Auditory Disturbances: 0-None Visual Disturbances: 0-None Headache: 1-Very Mild CIWA-Ar Total Score: 12 S Progress Note (SOAP) Subjective: 54 years old male admitted on 10/29/19 for alcohol withdrawal sx management treating with valium detox regimen doing ok today less tremor mild anxiety reports has primary care provider "bufferer" visiting once a month for chronic tachycardia Objective: 10/30/19 11:51 Vital Signs Temperature 97.1 F L 10/30/19 09:10 Pulse Rate 100 H 10/30/19 09:10 Respiratory Rate 18 10/30/19 09:10 Blood Pressure 124/80 10/30/19 09:10 O2 Sat by Pulse Oximetry (%) Laboratory Last Values WBC 2.7 K/mm3 (4.0-10.0) L 10/30/19 08:15 RBC 4.00 M/mm3 (4.00-5.60) 10/30/19 08:15 Hgb 12.8 GM/dL (11.7-16.9) 10/30/19 08:15 Hct 38.7 % (35.4-49) 10/30/19 08:15 MCV 96.8 fl (80-96) H 10/30/19 08:15 MCH 31.9 pg (25.7-33.7) 10/30/19 08:15 MCHC 33.0 g/dl (32.0-35.9) 10/30/19 08:15 RDW 13.6 % (11.9-15.9) 10/30/19 08:15 Plt Count 80 K/MM3 (134-434) L D 10/30/19 08:15 MPV 10.2 fl (7.5-11.1) D 10/30/19 08:15 Sodium 140 mmol/L (136-145) 10/30/19 08:15 Potassium 3.3 mmol/L (3.5-5.1) L 10/30/19 08:15 Chloride 103 mmol/L (98-107) 10/30/19 08:15 Carbon Dioxide 29 mmol/L (21-32) 10/30/19 08:15 Anion Gap 9 MMOL/L (8-16) 10/30/19 08:15 BUN 7.1 mg/dL (7-18) 10/30/19 08:15 Creatinine 0.7 mg/dL (0.55-1.3) 10/30/19 08:15 Est GFR (CKD-EPI)AfAm 122.27 10/30/19 08:15 Est GFR (CKD-EPI)NonAf 105.50 10/30/19 08:15 POC Glucometer 147 UNITS (80-120) 10/30/19 06:00 Random Glucose 161 mg/dL (74-106) H 10/30/19 08:15 Calcium 8.1 mg/dL (8.5-10.1) L 10/30/19 08:15 Total Bilirubin 0.3 mg/dL (0.2-1) 10/30/19 08:15 AST 201 U/L (15-37) H 10/30/19 08:15 ALT 143 U/L (13-61) H 10/30/19 08:15 Alkaline Phosphatase 80 U/L (45-117) 10/30/19 08:15 Total Protein 6.4 g/dl (6.4-8.2) 10/30/19 08:15 Albumin 3.3 g/dl (3.4-5.0) L 10/30/19 08:15 RPR Titer Nonreactive (NONREACTIVE) 10/30/19 08:15 lab noted 10/30/19 11:56 low wbc / plt / K+ ast elevation repeat cbc with diff potassium supplement x 2 dosages repeat K+ discontinue motrin 10/30/19 11:57 Assessment: 10/30/19 11:58 alcohol withdrawal sx 10/30/19 11:58 sinus tachycardia Plan: valium regimen no medical treatment monitoring by primary care provider
[2019-10-30] MEDS ORDERED: FLU VACCINE QUAD 60 MCG/0.5 ML (MDV 19-20) IM ONE (12:00)
[2019-10-30] MEDS: GLIMEPIRIDE 1 MG TABLET PO SCH (13:46)
[2019-10-30] MEDS: POTASSIUM CHLORIDE ORAL LIQUID 20 MEQ/15 ML PO SCH ×2 (13:46→22:16)
--- NOTE | 2019-10-30 15:21 | CONSULT ---
[facility] Psychiatric Consult - Data Date of interview: 10/30/19 Admission source: [facility] Identifying data: Revisit to [facility] and admission to [address] [place] [address] for this 54 y/o [place]-born male self-referred for detoxification treatment. BAYLEE issue : alcohol. Patient is , a father of four, homeless, unemployed and supported by relatives.. Substance Abuse History: Discussed with patient. Details in current [facility] report as follows : Smoking history: Never smoked. Have you smoked in the past 12 months: No. Hx Chewing Tobacco Use: No. Initiated information on smoking cessation: No. - Substances abused. Alcohol. Substance route: Oral. Frequency: Daily. Amount used: liquor- 2 pints, beer- 1 six pack. Age of first use: 15. Date of last use: 10/29/19 Medical History: Medical profile is remarkable for bronchial asthma, dyslipidemia, diabetes mellitus, hypertension, GERD and a history of treatment for syphilis. Psychiatric History: Mr Ospina-Olive denies history of psychiatric hospitalizations, OPD care or suicide attempts. Physical/Sexual Abuse/Trauma History: Patient denies. Additional Comment: Negative toxicology. Mental Status Exam - Mental Status Exam Alert and Oriented to: Time, Place, Person Cognitive Function: Good Patient Appearance: Unkempt, Disheveled Mood: Nervous, Withdrawn Affect: Mood Congruent, Constricted Patient Behavior: Fatigued, Appropriate, Cooperative Speech Pattern: Clear, Appropriate Voice Loudness: Normal Thought Process: Goal Oriented Thought Disorder: Not Present Hallucinations: Denies Suicidal Ideation: Denies Homicidal Ideation: Denies Insight/Judgement: Poor Sleep: Well Appetite: Good Gait/Station: Other (not observed ; patient in bed for duration of interview) Psychiatric Findings - Problem List ([place] 1, 2,3) (1) Alcohol dependence with uncomplicated withdrawal Current Visit: Yes Status: Acute Comment: NATE O.292 (2) Substance induced mood disorder Current Visit: Yes Status: Chronic - Initial Treatment Plan Initial Treatment Plan: Psychoeducation. Sleep hygiene. Detoxification. AA meetings. MAT services explained to patient. Rehabilitation recommended. Observation.
[2019-10-30] MEDS: THIAMINE HCL 100 MG TABLET (FP) PO SCH (22:16)
[2019-10-31] MEDS: diazePAM 5 MG TABLET PO SCH ×2 (05:32→17:48)
[2019-10-31] MEDS: GLIMEPIRIDE 1 MG TABLET PO SCH (06:04)
[2019-10-31 09:39] LABS: BASO % 1.4 % (0-2.0); EOS % 0.4 % (0-4.5); HEMATOCRIT 42.4 % (35.4-49); HEMOGLOBIN 13.9 GM/dL (11.7-16.9); LYMPH % 24.1 % (8-40); MCH 32.1 pg (25.7-33.7); MCHC 32.8 g/dl (32.0-35.9); MEAN CELL VOLUME 97.9 fl (80-96); MEAN PLT VOLUME 11.6 fl (7.5-11.1); MONO % 12.3 % (3.8-10.2); NEUT % 61.8 % (42.8-82.8); RBC 4.34 M/mm3 (4.00-5.60); RDW 13.5 % (11.9-15.9); WHITE BLOOD COUNT 4.4 K/mm3 (4.0-10.0)
[2019-10-31] MEDS: diazePAM 5 MG TABLET PO PRN (10:17)
[2019-10-31] MEDS: amLODIPine BESYLATE 5 MG TABLET (FP) PO SCH (10:17)
[2019-10-31] MEDS: PRENATAL VITAMINS W/ FOLIC ACID TABLET (FP) PO SCH (10:17)
[2019-10-31] MEDS: ASPIRIN COATED 81 MG TABLET.EC PO SCH (10:17)
--- NOTE | 2019-10-31 10:58 | PN ---
S CIWA - CIWA Score Nausea/Vomitin-Mild Nausea/No Vomiting Muscle Tremors: 2 Anxiety: 2 Agitation: 2 Paroxysmal Sweats: 1-Minimal Palms Moist Orientation: 0-Oriented Tacttile Disturbances: 0-None Auditory Disturbances: 0-None Visual Disturbances: 0-None Headache: 0-None Present CIWA-Ar Total Score: 8 BHS Progress Note (SOAP) Subjective: 54 years old male admitted on 10/29/19 for alcohol withdrawal sx management treating with valium detox regimen feeling ok today ate breakfast ambulating on [address] social with peers in day room discuss aftercare with staff patient determines to maintain sober through recovery process Objective: 10/31/19 10:56 Vital Signs Temperature 97.6 F 10/31/19 09:14 Pulse Rate 109 H 10/31/19 09:14 Respiratory Rate 147 H 10/31/19 09:14 Blood Pressure 121/65 10/31/19 09:14 O2 Sat by Pulse Oximetry (%) Laboratory Last Values WBC 4.4 K/mm3 (4.0-10.0) 10/31/19 08:00 RBC 4.34 M/mm3 (4.00-5.60) 10/31/19 08:00 Hgb 13.9 GM/dL (11.7-16.9) 10/31/19 08:00 Hct 42.4 % (35.4-49) 10/31/19 08:00 MCV 97.9 fl (80-96) H 10/31/19 08:00 MCH 32.1 pg (25.7-33.7) 10/31/19 08:00 MCHC 32.8 g/dl (32.0-35.9) 10/31/19 08:00 RDW 13.5 % (11.9-15.9) 10/31/19 08:00 Plt Count 80 K/MM3 (134-434) L D 10/30/19 08:15 MPV 11.6 fl (7.5-11.1) H D 10/31/19 08:00 Absolute Neuts (auto) 2.7 K/mm3 (1.5-8.0) 10/31/19 08:00 Neutrophils % 61.8 % (42.8-82.8) 10/31/19 08:00 Lymphocytes % 24.1 % (8-40) 10/31/19 08:00 Monocytes % 12.3 % (3.8-10.2) H 10/31/19 08:00 Eosinophils % 0.4 % (0-4.5) 10/31/19 08:00 Basophils % 1.4 % (0-2.0) 10/31/19 08:00 Nucleated RBC % 0 % (0-0) 10/31/19 08:00 Sodium 140 mmol/L (136-145) 10/30/19 08:15 Potassium 3.3 mmol/L (3.5-5.1) L 10/30/19 08:15 Chloride 103 mmol/L (98-107) 10/30/19 08:15 Carbon Dioxide 29 mmol/L (21-32) 10/30/19 08:15 Anion Gap 9 MMOL/L (8-16) 10/30/19 08:15 BUN 7.1 mg/dL (7-18) 10/30/19 08:15 Creatinine 0.7 mg/dL (0.55-1.3) 10/30/19 08:15 Est GFR (CKD-EPI)AfAm 122.27 10/30/19 08:15 Est GFR (CKD-EPI)NonAf 105.50 10/30/19 08:15 POC Glucometer 174 UNITS (80-120) 10/31/19 05:30 Random Glucose 161 mg/dL (74-106) H 10/30/19 08:15 Calcium 8.1 mg/dL (8.5-10.1) L 10/30/19 08:15 Total Bilirubin 0.3 mg/dL (0.2-1) 10/30/19 08:15 AST 201 U/L (15-37) H 10/30/19 08:15 ALT 143 U/L (13-61) H 10/30/19 08:15 Alkaline Phosphatase 80 U/L (45-117) 10/30/19 08:15 Total Protein 6.4 g/dl (6.4-8.2) 10/30/19 08:15 Albumin 3.3 g/dl (3.4-5.0) L 10/30/19 08:15 RPR Titer Nonreactive (NONREACTIVE) 10/30/19 08:15 lab noted 10/31/19 10:57 plt and ast repeat pending Assessment: 10/31/19 10:58 alcohol withdrawal Plan: valium regimen
[2019-10-31 11:05] LABS: POTASSIUM 3.8 mmol/L (3.5-5.1)
[2019-10-31] MEDS ORDERED: cloNIDine HCL 0.1 MG TABLET PO PRN (13:29)
[2019-10-31 13:36] LABS: PLATELET ESTIMATE DECREASED
[2019-10-31 13:48] LABS: PLATELET COUNT 90 K/MM3 (134-434)
[2019-10-31] MEDS: LISINOPRIL 10 MG TABLET (FP) PO SCH ×2 (14:01→22:36)
[2019-10-31] MEDS: THIAMINE HCL 100 MG TABLET (FP) PO SCH (22:36)
[2019-11-01] MEDS: GLIMEPIRIDE 1 MG TABLET PO SCH (06:00)
[2019-11-01] MEDS ORDERED: diazePAM 5 MG TABLET PO ONE (06:00)
[2019-11-01] MEDS ORDERED: diphenhydrAMINE HCL 25 MG CAPSULE (FP) PO PRN (07:27)
--- NOTE | 2019-11-01 07:31 | PN ---
[facility] Progress Note Note: CALLED TO SEE PATIENT FOR SWOLLEN LIP 2/2 TO PEANUT BUTTER ALLERGY. PT STATES HIS LIP SWELLED UP AFTER EATING A PEANUT BUTTER SANDWICH. STATES THIS IS HIS FIRST TIME EATING PEANUT. DENIES SOB, PRURITIS, C.P. Vital Signs Temperature 98.7 F 11/01/19 06:49 Pulse Rate 108 H 11/01/19 06:49 Respiratory Rate 18 11/01/19 06:49 Blood Pressure 116/81 11/01/19 06:49 O2 Sat by Pulse Oximetry (%) PT IS A/O X3 NAD, AMBULATING AND SPEAKING FULL SENTENCES W/O DIFFICULTY HEAD- RIGHT UPPER LIP SWOLLEN, MOUTH- MMM, TONSILS WNL, PATENT AIRWAY LUNGS- CTAB, NO RALES, RONCHI,WHEEZING- 02 SAT 98% RA SKIN- NO REDNESS, HIVES, WHEALS, UTICARIA A- ALLERGIC RXN P- BENADRLY 50 MG IM STAT! BENADRYL 25 MG PO Q4 HOURS PRN MONITOR FOR WORSENING S/SX, SOB, POSSIBLE ANAPHYLAXIS CLIENT DECLINES ER EVAL AT THIS TIME. INSIST HE WILL BE LEAVING IT IS HIS SCHEDULED DAY TO DC ENDORSED CLIENT TO DR. COLON PENDING ARRIVAL OF UNIT COVERAGE
[2019-11-01 07:46] VITALS: BP 114/79; PULSE 120; TEMP 98.2
[2019-11-01] MEDS: PRENATAL VITAMINS W/ FOLIC ACID TABLET (FP) PO SCH (09:12)
[2019-11-01] MEDS: LISINOPRIL 10 MG TABLET (FP) PO SCH (09:12)
[2019-11-01] MEDS: amLODIPine BESYLATE 5 MG TABLET (FP) PO SCH (09:12)
[2019-11-01] MEDS: ASPIRIN COATED 81 MG TABLET.EC PO SCH (09:12)
--- NOTE | 2019-11-01 13:31 | DS ---
[facility] Detox Discharge Summary Admission Date: 10/30/19 Discharge Date: 11/01/19 - History Present History: Alcohol Dependence Additional Comments: 54 years old male admitted on 10/29/19 for alcohol withdrawal sx management treated with Valium detox regimen had peanut allergic treated with benadryl patient insists to leave the detox refuses to stay over night for post peanut allergy reaction close observation patient is alert oriented x 3 speech clearly coherently ambulating with steady gait ate breakfast no trouble chewing swallowing Pertinent Past History: case discussed with the nurse against medical advice is appropriated - Physical Exam Results Vital Signs: Vital Signs Temperature 98.2 F 11/01/19 07:45 Pulse Rate 120 H 11/01/19 07:45 Respiratory Rate 18 11/01/19 07:45 Blood Pressure 114/79 11/01/19 07:45 O2 Sat by Pulse Oximetry (%) Pertinent Admission Physical Exam Findings: alcohol withdrawal Laboratory Last Values WBC 4.4 K/mm3 (4.0-10.0) 10/31/19 08:00 RBC 4.34 M/mm3 (4.00-5.60) 10/31/19 08:00 Hgb 13.9 GM/dL (11.7-16.9) 10/31/19 08:00 Hct 42.4 % (35.4-49) 10/31/19 08:00 MCV 97.9 fl (80-96) H 10/31/19 08:00 MCH 32.1 pg (25.7-33.7) 10/31/19 08:00 MCHC 32.8 g/dl (32.0-35.9) 10/31/19 08:00 RDW 13.5 % (11.9-15.9) 10/31/19 08:00 Plt Count 90 K/MM3 (134-434) L 10/31/19 08:00 MPV 11.6 fl (7.5-11.1) H D 10/31/19 08:00 Absolute Neuts (auto) 2.7 K/mm3 (1.5-8.0) 10/31/19 08:00 Neutrophils % 61.8 % (42.8-82.8) 10/31/19 08:00 Lymphocytes % 24.1 % (8-40) 10/31/19 08:00 Monocytes % 12.3 % (3.8-10.2) H 10/31/19 08:00 Eosinophils % 0.4 % (0-4.5) 10/31/19 08:00 Basophils % 1.4 % (0-2.0) 10/31/19 08:00 Nucleated RBC % 0 % (0-0) 10/31/19 08:00 Platelet Estimate Decreased 10/31/19 08:00 Sodium 140 mmol/L (136-145) 10/30/19 08:15 Potassium 3.8 mmol/L (3.5-5.1) 10/31/19 08:00 Chloride 103 mmol/L (98-107) 10/30/19 08:15 Carbon Dioxide 29 mmol/L (21-32) 10/30/19 08:15 Anion Gap 9 MMOL/L (8-16) 10/30/19 08:15 BUN 7.1 mg/dL (7-18) 10/30/19 08:15 Creatinine 0.7 mg/dL (0.55-1.3) 10/30/19 08:15 Est GFR (CKD-EPI)AfAm 122.27 10/30/19 08:15 Est GFR (CKD-EPI)NonAf 105.50 10/30/19 08:15 POC Glucometer 174 UNITS (80-120) 11/01/19 06:02 Random Glucose 161 mg/dL (74-106) H 10/30/19 08:15 Calcium 8.1 mg/dL (8.5-10.1) L 10/30/19 08:15 Total Bilirubin 0.3 mg/dL (0.2-1) 10/30/19 08:15 AST 117 U/L (15-37) H 10/31/19 08:00 ALT 143 U/L (13-61) H 10/30/19 08:15 Alkaline Phosphatase 80 U/L (45-117) 10/30/19 08:15 Total Protein 6.4 g/dl (6.4-8.2) 10/30/19 08:15 Albumin 3.3 g/dl (3.4-5.0) L 10/30/19 08:15 RPR Titer Nonreactive (NONREACTIVE) 10/30/19 08:15 lab noted patient agrees to bringing in lab report follow up with primary care provider at the community health service - Treatment Hospital Course: Detox Protocol Followed Patient has Accepted a Rehab Referral to: community support approach - Medication Discharge Medications: Ambulatory Orders Naltrexone HCl [Revia -] 50 mg PO DAILY 10/31/18 Amlodipine Besylate [Norvasc -] 5 mg PO DAILY #30 tablet 11/03/18 Aspirin [Aspirin EC] 81 mg PO DAILY #30 tablet. 11/03/18 Glimepiride [Amaryl -] 2 mg PO DAILY #30 tablet 11/03/18 metFORMIN HCL [Metformin HCl ER] 500 mg PO ASDIR 30 Days #60 tab.er.24h - AMA Did Patient Leave Against Medical Advice: Yes
== END 2019-11-01 09:04 | disposition left against medical advice (07) | DRG 770 ==
LOC: YASAS 20:53 → Y3N 10-30 00:02
PROVIDERS: ADMIT Allergy & Immunology; ATTEND Allergy & Immunology
PROC: HZ2ZZZZ Detoxification Services for Substance Abuse Treatment (ICD-10-PCS; principal; 2019-10-30)
DX: F10.230 Alcohol dependence with withdrawal, uncomplicated (principal); F31.9 Bipolar disorder, unspecified; F19.24 Other psychoactive substance dependence with psychoactive substance-induced mood disorder; I10 Essential (primary) hypertension; E11.9 Type 2 diabetes mellitus without complications; Z79.84 Long term (current) use of oral hypoglycemic drugs; K21.9 Gastro-esophageal reflux disease without esophagitis; E78.5 Hyperlipidemia, unspecified; J45.909 Unspecified asthma, uncomplicated; Z86.69 Personal history of other diseases of the nervous system and sense organs; Z86.19 Personal history of other infectious and parasitic diseases; Z91.010 Allergy to peanuts
CPT/HCPCS: 36415; 71046-TC-FY; 80053; 82962; 84132; 84450; 85025; 85027; 86593; 93005; 93010; G0008; J0735; Q2036